=== PATIENT | female | born 2000 | race Caucasian/White ===

== ENCOUNTER 2021-11-27 14:40 | Emergency (ER) | payer BC, SELFPAY ==
--- NOTE | ~2021-11-27 | XR_ITS ---
EXAM: XR foot RT min 3V DATE: 11/27/2021 15:09 HISTORY: right anterior and proximal foot pain, no known injury . COMPARISON: None available. FINDINGS: Normal mineralization. No fracture or dislocation. No lytic or blastic lesion. Joint space s are maintained. No erosion or periosteal change. Linear, metallic density, 3.5 mm radiopacity (ques tion wire or needle fragment) projecting over the subcutaneous fat of the heel. Punctate radiodensity projecting in the subcutaneous fat of the ball of the foot, seen only in the lateral view. IMPRESSION: Linear, metallic foreign debris projecting over the heel. Punctate radiopacity projects i n the soft tissues of the ball of foot. Reviewed, dictated and finalized at location K. IMPRESSION: Linear, metallic foreign debris projecting over the heel. Punctate radiopacity projects in the soft tissues of the ball of foot.
[2021-11-27 14:56] VITALS: BP 135/72; PULSE 84; RESP 18; TEMP 36.8; O2SAT 100
--- NOTE | 2021-11-27 15:01 | ED.GENADULT ---
HPI - General Adult General Chief complaint: Extremity Injury, Lower Stated complaint: rt foot pain History of Present Illness HPI narrative: 21 y/o female. PMHx None reported. Presents to [facility] today with acute complaints of RT foot pain, worsening in the past 1 week. Client denies falls or RLE trauma. 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 Pain is described as aching , and located to dorsal aspect. No loss of lower extremity sensation or control. No additional acute c/o upon PE. Related Data Home Medications Medication Instructions Recorded Confirmed levonorgestrel 20 mcg/24 hours (7 1 device intrauterine ONCE 11/27/21 11/27/21 yrs) 52 mg intrauterine device (Mirena) sertraline 50 mg tablet (Zoloft) 50 mg PO DAILY 11/27/21 11/27/21 Allergies Allergy/AdvReac Type Severity Reaction Status Date / Time No Known Allergies Allergy Verified 11/27/21 15:04 Review of Systems Review of Systems: CONSTITUTIONAL: Denies fever, chills, sweats. EYES: Denies visual changes, redness, discharge. ENT: Denies rhinorrhea, congestion, sore throat, otalgia. CARDIOVASCULAR: Denies chest pain, palpitations, edema. RESPIRATORY: Denies dyspnea, wheezing, cough GASTROINTESTINAL: Denies abdominal pain, nausea, vomiting, diarrhea. GENITOURINARY: Denies dysuria, hematuria, abnormal discharge SKIN: Denies rash or itching. MUSCULOSKELETAL: RT foot pain, otherwise negative. NEUROLOGIC: Denies numbness, or focal weakness. PSYCHIATRIC: Denies anxiety or depression. Exam Narrative: GENERAL: This is a well-nourished, well-developed adult, in no apparent distress. HEAD: normocephalic EYES: PERRL. EARS: External ears normal NOSE: External nose normal. THROAT: Mucous membranes moist NECK: Neck supple, non-tender without lymphadenopathy, masses or thyromegaly. CARDIOVASCULAR: Regular rate and rhythm without murmurs, gallops, or rubs. RESPIRATORY: Clear to auscultation. Breath sounds equal bilaterally. No wheezes, rales, or rhonchi. GASTROINTESTINAL: Abdomen soft, non-tender, nondistended. SKIN: warm, intact with no suspicious lesions or rash, good texture and turgor. NEURO: Alert, active, and age appropriate. Good sensation and discrimination BLE. No focal neurologic deficits. EXTREMITIES: With mild RT dorsal foot tenderness overlying lesser RT 2nd-3rd metatarsal. No obvious bony deformity. No wounds. Client able to fully flex and extend foot and all digits. Able t bear weight w/o difficulty. Pulses and sensation intact. Remaining musculoskeletal exam is Negative. Course Course Level of Care: Express Care Visit Vital Signs Vital signs: Vital Signs Temperature 36.8 C 11/27/21 14:56 Pulse Rate 84 11/27/21 14:56 Respiratory Rate 18 11/27/21 14:56 Blood Pressure 135/72 11/27/21 14:56 Pulse Oximetry 100 11/27/21 14:56 Oxygen Delivery Room Air 11/27/21 14:56 Temperature 36.8 C 11/27/21 14:56 Pulse Rate 84 11/27/21 14:56 Respiratory Rate 18 11/27/21 14:56 Blood Pressure 135/72 11/27/21 14:56 Pulse Oximetry 100 11/27/21 14:56 Oxygen Delivery Room Air 11/27/21 14:56 Medical Decision Making MDM Narrative Medical decision making narrative: -No neurovascular deficits. -Plain film radiology imaging reveals no acute osseous processes. Incidentally noted is Metallic FB debris deep soft tissue ball and heel. There is no appreciable pain or swelling to these sites. No signs of infection or wounds. -Able to bear weight without issues. -Suspect strain type injury dorsal foot. -Cover steroid dosing X next 7 days. -Resume NSAID/Tylenol alteration prn, RT foot wrapping, elevation, ice (20 minutes on & 20 minutes off), rest, good footing. -I have referred her to local Podiatry MD Bruno, for follow-up in next one week. Foreign body specialty evaluation. Consider additional OP imaging or invasive therapies as
== END 2021-11-27 15:34 | disposition home or self-care (01) ==
PROVIDERS: Emergency Provider Nurse Practitioner Adult Health
DX: S93.601A Unspecified sprain of right foot, initial encounter (principal); X58.XXXA Exposure to other specified factors, initial encounter
CPT/HCPCS: 73630; 99213; G0463